=== PATIENT | male | born 1940 | race Caucasian/White ===

== ENCOUNTER 2017-09-22 20:21 | Emergency (ER) | payer OTHER, MEDICARE ==
[~2017-09-22] VITALS: Ht 180.3 cm; Wt 102.5 kg
[~2017-09-22 20:21] MED LIST: ALBU90OI INH; ASCO500 PO; ASPI325 PO; ASPI325EC PO; ATOR10 PO; ATOR40TA PO; BUPR150ER PO; CELE200; CELE200 PO; CHOL10002; CHOL10002 PO; CITA20 PO; CYAN500 PO; DIPASPER PO; DOXA4; ESCI20; FEXO180 PO; FISH1000 PO; FLUSAL1005 IH; FLUSAL2505 IH; GABA100 PO; GLUC500 PO; HYDACE7.5; HYDACE7.5 PO; HYDCHL25 PO; HYDCOR2.5A PR; KRILL OIL PO; LISHYD2025 PO; LOVENOX SQ; METF500 PO; MONT10T PO; MOVE FREE ULTR1 EAC1 PO; MOVE FREE ULTRA PO; MULVIT PO; MULVITMINF PO; NITR.4SL SL; Norco 7.5-3251 EACH PO; OMEGA-3 KRILL1 EACH; OMEP20ER; PSEU120ER PO; RABE20 PO; TEMA7.5 PO; TESTOSTERONE TOP; TOCO1000 PO; TRAM50 PO; VERAMYST; VITAMIN B-COMPLEX PO; Ventolin/Prove6.7 GM; WARF7.5 PO; [UNRECOGNIZED DRUG - MIXTURE]; [UNRECOGNIZED DRUG - OTHER] PO; [UNRECOGNIZED DRUG - OTHER] PO; [UNRECOGNIZED DRUG - OTHER] TOP
[2017-09-22] MEDS ORDERED: LISI5 PO (20:36)
[2017-09-22] MEDS ORDERED: CLOP75 PO (20:36)
[2017-09-22 20:58] LABS: BASOPHILS ABSOLUTE AUTO 0.02 K/mm3 (0.00-0.23); BASOPHILS PERCENT AUTO 0 % (0-2); EOSINOPHILS ABSOLUTE AUTO 0.04 K/mm3 (0.00-0.68); EOSINOPHILS PERCENT AUTO 0 % (0-6); Hematocrit 42.7 % (37.0-53.0); Hemoglobin 14.4 g/dL (13.5-17.5); IMMATURE GRAN ABSOLUTE AUTO 0.03 K/mm3 (0.00-0.10); IMMATURE GRAN PERCENT AUTO 0 % (0-1); LYMPHOCYTES ABSOLUTE AUTO 0.61 K/mm3 (0.84-5.20); LYMPHOCYTES PERCENT AUTO 5 % (21-46); MONOCYTES ABSOLUTE AUTO 0.94 K/mm3 (0.16-1.47); MONOCYTES PERCENT AUTO 8 % (4-13); Mean Corpuscular HGB 31.5 pg (26.0-34.0); Mean Corpuscular HGB Conc 33.7 g/dL (31.5-36.5); Mean Corpuscular Volume 93 fL (80-100); Mean Platelet Volume 11.1 fL (9.1-12.4); NEUTROPHILS ABSOLUTE AUTO 10.42 K/mm3 (1.96-9.15); NEUTROPHILS PERCENT AUTO 86 % (41-73); Platelet Count 180 K/mm3 (150-400); RDW Coefficient Variation 13.5 % (11.7-14.2); RDW Standard Deviation 46.1 fL (35.1-46.3); Red Blood Cell Count 4.57 M/mm3 (4.30-5.90); White Blood Cell Count 12.06 K/mm3 (4.00-11.30)
[2017-09-22 21:18] LABS: Albumin, Blood 3.4 g/dL (3.4-5.0); Albumin/Globulin Ratio 1.1 (0.8-1.8); Bilirubin, Total 0.4 mg/dL (0.1-1.0); Bun/Creatinine Ratio 16.9 (12.0-20.0); Calcium, Blood 8.6 mg/dL (8.5-10.1); Creatinine, Blood 1.24 mg/dL (0.60-1.20); Globulin, Blood 3.1 g/dL (2.2-4.0); Magnesium, Blood 2.3 mg/dL (1.6-2.4); Total Protein, Blood 6.5 g/dL (6.4-8.2)
[2017-09-22 22:14] LABS: Source, Urine Clean Catch
[2017-09-22 22:22] LABS: Bilirubin, Urine Neg (Neg); Blood, Urine 5+ (Neg); Glucose Qualitative, Urine Neg (Neg); Ketones, Urine Neg (Neg); Leukocyte Esterase, Urine Neg (Neg); Nitrite, Urine Neg (Neg); Protein, Urine Neg (Neg); Urobilinogen, Urine NORM (Normal)
[2017-09-22 22:28] LABS: Appearance, Urine Clear (Clear); Color, Urine Yellow (P-Yellow)
[2017-09-22] MEDS ORDERED: Flomax0.4 MG PO (22:31)
[2017-09-22] MEDS ORDERED: Percocet 5-3251 EACH PO (22:31)
[2017-09-22 22:33] LABS: Bacteria Rare /hpf; Squamous Epithelial Cells Rare /hpf (Few); White Blood Cells, Urine 0-2 /hpf (0-5)
== END 2017-09-22 23:04 | disposition home or self-care (01) ==
LOC: ER 20:21
PROVIDERS: Emergency Medicine
DX: N13.2 Hydronephrosis with renal and ureteral calculous obstruction (principal); J45.909 Unspecified asthma, uncomplicated; I10 Essential (primary) hypertension; Z86.711 Personal history of pulmonary embolism; Z86.718 Personal history of other venous thrombosis and embolism; Z88.2 Allergy status to sulfonamides; Z88.5 Allergy status to narcotic agent; Z88.8 Allergy status to other drugs, medicaments and biological substances; Z79.899 Other long term (current) drug therapy
CPT/HCPCS: 36415; 74176; 80053; 81000; 81001; 83605; 83690; 83735; 85025; 87040; 96374; 96376; 99284; J1170

== ENCOUNTER → 2018-04-21 | Outpatient (CLI) | payer OTHER, MEDICARE ==
[~2018-04-21] MED LIST changes: +CLOP75 PO; +Flomax0.4 MG PO; +LISI5 PO; +Percocet 5-3251 EACH PO
== END | disposition home or self-care (01) ==
LOC: LAB 14:24 → LAB SHORT 14:24
DX: D48.5 Neoplasm of uncertain behavior of skin (principal)
CPT/HCPCS: 87210

== ENCOUNTER → 2019-12-11 | Outpatient (CLI) | payer OTHER ==
[2019-12-11 18:18] LABS: Source, Urine Clean Catch
[2019-12-11 19:00] LABS: Bacteria Not Seen /hpf; Calcium Oxalate Crystals Mod /hpf; Mucus Light (0-Heavy); Red Blood Cells, Urine 0-2 /hpf (0-2); Squamous Epithelial Cells Few /hpf (Few); White Blood Cells, Urine 0-2 /hpf (0-5)
== END | disposition home or self-care (01) ==
LOC: LAB SHORT 16:45 → LAB EV 16:45
PROVIDERS: Physician Assistant
DX: R36.1 Hematospermia (principal)
CPT/HCPCS: 81015

== ENCOUNTER 2020-12-27 12:05 | Inpatient (IN) | payer OTHER ==
[~2020-12-27] VITALS: Ht 180.3 cm; Wt 98.9 kg
[~2020-12-27 12:05] MED LIST changes: +FLUTICASONE-SA1 EAC9 INH
[2020-12-27] MEDS ORDERED: LISI20 PO (12:34)
[2020-12-27] MEDS ORDERED: CLON.5 PO (12:35)
[2020-12-27] MEDS ORDERED: SUPHEDRINE PO (12:35)
[2020-12-27] MEDS ORDERED: ZOLOFT50 MG PO (12:35)
[2020-12-27] MEDS ORDERED: ATOR10 PO (12:36)
[2020-12-27] MEDS ORDERED: MOBIC15 MG PO (12:37)
[2020-12-27] MEDS ORDERED: RABEPRAZOLE SOD20 MG PO (12:38)
[2020-12-27] MEDS ORDERED: PRAZ5 PO (12:38)
[2020-12-27] MEDS ORDERED: TRAM50 PO (12:41)
[2020-12-27] MEDS ORDERED: TRAZ100 PO (12:43)
[2020-12-27] MEDS ORDERED: NUVIGIL50 MG PO (12:43)
[2020-12-27] MEDS ORDERED: SILD50TA PO (12:43)
[2020-12-27 12:57] LABS: Alanine Aminotransfer (ALT/SGP 20 U/L (12-78); Albumin, Blood 3.3 g/dL (3.4-5.0); Albumin/Globulin Ratio 1.2 (0.8-1.8); Alk Phos 69 U/L (50-136); Anion Gap 4 mmol/L (6-16); Aspartate Aminotrans (AST/SGOT 13 U/L (12-37); Bilirubin, Total 0.8 mg/dL (0.1-1.0); Blood Urea Nitrogen 18 mg/dL (8-24); Bun/Creatinine Ratio 18.9 (12.0-20.0); CO2, Blood 28 mmol/L (21-32); Calcium, Blood 8.3 mg/dL (8.5-10.1); Chloride, Blood 113 mmol/L (98-108); Creatinine, Blood 0.95 mg/dL (0.60-1.20); Globulin, Blood 2.7 g/dL (2.2-4.0); Glomerular Filtration Rate >60 (60-); Glucose, Blood 115 mg/dL (70-99); Potassium, Blood 4.4 mmol/L (3.5-5.5); Sodium, Blood 145 mmol/L (136-145)
[2020-12-27 13:20] LABS: BASOPHILS ABSOLUTE AUTO 0.04 K/mm3 (0.00-0.23); BASOPHILS PERCENT AUTO 1 % (0-2); EOSINOPHILS PERCENT AUTO 0 % (0-6); Hematocrit 40.2 % (37.0-53.0); Hemoglobin 13.6 g/dL (13.5-17.5); IMMATURE GRAN ABSOLUTE AUTO 0.03 K/mm3 (0.00-0.10); IMMATURE GRAN PERCENT AUTO 0 % (0-1); LYMPHOCYTES ABSOLUTE AUTO 0.92 K/mm3 (0.84-5.20); LYMPHOCYTES PERCENT AUTO 13 % (21-46); MONOCYTES ABSOLUTE AUTO 0.56 K/mm3 (0.16-1.47); MONOCYTES PERCENT AUTO 8 % (4-13); Mean Corpuscular HGB 31.6 pg (26.0-34.0); Mean Corpuscular HGB Conc 33.8 g/dL (31.5-36.5); Mean Corpuscular Volume 93 fL (80-100); Mean Platelet Volume 11.3 fL (9.1-12.4); NEUTROPHILS ABSOLUTE AUTO 5.63 K/mm3 (1.96-9.15); NEUTROPHILS PERCENT AUTO 78 % (41-73); Platelet Count 176 K/mm3 (150-400); RDW Coefficient Variation 13.2 % (11.7-14.2); RDW Standard Deviation 45.5 fL (35.1-46.3); Red Blood Cell Count 4.31 M/mm3 (4.30-5.90); White Blood Cell Count 7.18 K/mm3 (4.00-11.30)
[2020-12-27 15:06] LABS: Hematocrit 52.1 % (37.0-53.0); Hemoglobin 16.9 g/dL (13.5-17.5)
[2020-12-27] MEDS ORDERED: THERA-D2000 UNIT PO (17:20)
[2020-12-27] MEDS ORDERED: ALBU90OI INH (17:26)
--- NOTE | 2020-12-27 18:47 | NUR ---
SHIFT SUMMARY PT IS A/O X4 AND COPPERATIVE OF CARE. PT IS INDEPENDENT WITHIN ROOM. PT HAD TWO BM SINCE ARRIVAL TO UNIT, THE SECOND BM BEING OBSERVED TO HAVE BRIGHT RED BLOOD. VSS AND ON RA WITH O2 SAT RANGING IN THE HIGH 90S. PT IS NPO FOR PROCEDURE TOMORROW. PLAN IS FOR PT TO HAV ECOLONOSCOPY.
--- NOTE | 2020-12-27 19:15 | NUR ---
THIS RN AGREES WITH STUDENT NURSE SHIFT SUMMARY NOTE.
[2020-12-27 21:13] LABS: Hematocrit 39.7 % (37.0-53.0); Hemoglobin 13.5 g/dL (13.5-17.5)
[2020-12-28 01:11] LABS: Influenza A, PCR NEGATIVE (NEGATIVE); Influenza B, PCR NEGATIVE (NEGATIVE); Resp Syncytial Virus, PCR NEGATIVE (NEGATIVE); SARS-Cov-2 (COVID-19) PCR, MMC NEGATIVE (NEGATIVE)
[2020-12-28 03:35] LABS: BASOPHILS ABSOLUTE AUTO 0.03 K/mm3 (0.00-0.23); BASOPHILS PERCENT AUTO 1 % (0-2); EOSINOPHILS ABSOLUTE AUTO 0.01 K/mm3 (0.00-0.68); EOSINOPHILS PERCENT AUTO 0 % (0-6); Hematocrit 36.1 % (37.0-53.0); Hemoglobin 12.1 g/dL (13.5-17.5); IMMATURE GRAN ABSOLUTE AUTO 0.01 K/mm3 (0.00-0.10); IMMATURE GRAN PERCENT AUTO 0 % (0-1); LYMPHOCYTES ABSOLUTE AUTO 0.99 K/mm3 (0.84-5.20); LYMPHOCYTES PERCENT AUTO 15 % (21-46); MONOCYTES ABSOLUTE AUTO 0.63 K/mm3 (0.16-1.47); MONOCYTES PERCENT AUTO 10 % (4-13); Mean Corpuscular HGB 31.4 pg (26.0-34.0); Mean Corpuscular HGB Conc 33.5 g/dL (31.5-36.5); Mean Corpuscular Volume 94 fL (80-100); Mean Platelet Volume 11.2 fL (9.1-12.4); NEUTROPHILS ABSOLUTE AUTO 4.75 K/mm3 (1.96-9.15); NEUTROPHILS PERCENT AUTO 74 % (41-73); Platelet Count 155 K/mm3 (150-400); RDW Coefficient Variation 13.3 % (11.7-14.2); RDW Standard Deviation 45.5 fL (35.1-46.3); Red Blood Cell Count 3.85 M/mm3 (4.30-5.90); White Blood Cell Count 6.42 K/mm3 (4.00-11.30)
[2020-12-28 03:55] LABS: Alanine Aminotransfer (ALT/SGP 18 U/L (12-78); Albumin/Globulin Ratio 1.3 (0.8-1.8); Alk Phos 56 U/L (50-136); Anion Gap 2 mmol/L (6-16); Aspartate Aminotrans (AST/SGOT 9 U/L (12-37); Bilirubin, Total 0.7 mg/dL (0.1-1.0); Blood Urea Nitrogen 16 mg/dL (8-24); Bun/Creatinine Ratio 19.3 (12.0-20.0); CO2, Blood 29 mmol/L (21-32); Chloride, Blood 114 mmol/L (98-108); Creatinine, Blood 0.83 mg/dL (0.60-1.20); Globulin, Blood 2.3 g/dL (2.2-4.0); Glomerular Filtration Rate >60 (60-); Glucose, Blood 95 mg/dL (70-99); Potassium, Blood 3.8 mmol/L (3.5-5.5); Sodium, Blood 145 mmol/L (136-145); Total Protein, Blood 5.3 g/dL (6.4-8.2)
--- NOTE | 2020-12-28 06:08 | NUR ---
SHIFT SUMMARY PT A&O X 4; PLEASANT & COMPLIANT W/ CARE; DENIES CHEST PAIN; VSS; O2 SATS >93 ON RA; PETR REMAINS AT BEDSIDE PT HAS NOT BEEN ABLE TO FINISH IT COMPLETELY; AMBULATES TO BATHROOM W/ NO GAIT DISTURBANCES NOTED; BM REMAINS MAROON, LOOSE BUT W/ SLIGHT SEDIMENT; CALLS APPROPRIATELY; CALL LIGHT IN REACH; BED IN LOWEST POSITION; WILL CONTINUE TO MONITOR CLOSELY UNTIL HAND OFF TO DAY SHIFT RN.
[2020-12-28 09:05] LABS: Hematocrit 36.3 % (37.0-53.0)
--- NOTE | 2020-12-28 13:37 | NUR ---
PT TRANSFERED TO [facility] VIA [facility] FROM FLOOR. History, Chart, Medications and Allergies reviewed before start of procedure. Lungs clear T/O to Auscultation. Patient confirms NPO status and agrees with scheduled surgery. Pre-Op teaching done. Pt verbalizes understanding.
--- NOTE | 2020-12-28 14:14 | NUR ---
12/28/20 1414 CESAR ZAYAS History, Chart, Medications and Allergies reviewed before start of procedure. 3-LEAD EKG REVIEWED WITH PHYSICIAN PRIOR TO START OF PROCEDURE. MONITOR INTACT WITH CONTINUOUS PULSE OXIMETRY AND INTERMITTENT BP. O2 VIA NONREBREATHER INTACT THROUGHOUT SEDATION/PROCEDURE. PATIENT DETERMINED TO BE ASA APPROPRIATE FOR PROPOFOL SEDATION PRIOR TO START OF PROCEDURE BY DR. LISA AND DR. GARRISON, AND RN.
[2020-12-28 15:57] LABS: Hematocrit 37.1 % (37.0-53.0)
--- NOTE | 2020-12-28 19:54 | NUR ---
PT HAD COLONOSCOPY TODAY (SEE REPORT); PLAN IS TO DISCHARGE TO HOME TOMORROW. PT DENIES ADDITIONAL COMPLAINTS AT THIS TIME.
[2020-12-28 21:07] LABS: Hematocrit 34.7 % (37.0-53.0); Hemoglobin 11.7 g/dL (13.5-17.5)
--- NOTE | 2020-12-29 05:01 | NUR ---
SHIFT SUMMARY. VSS. PERIPHERAL IV S/L POST COMPLETION OF IV FLUIDS PER EMAR. NO EVENTS OCCURED DURING THE NIGHT. WILL CONTINUE TO MONITOR UNTIL HAND OFF TO DAY SHIFT.
--- NOTE | 2020-12-29 11:05 | NUR ---
ADMIT: 12/27/20 DISCHARGE: DX: gi bleed CC:cpeabody TRAVIS CALL: RESIDENCE: home with CAREGIVER: AUDREY NDIAYE (SPOUSE) DX:asthma, carcinoma of prostate, cva, chronci pain, htn, rem sleep behavior DME: nebulizer CCM: no record HOME HEALTH: no record SUMMARY: Admit 12/27/20 12/28/20 DR Toney, consult, lower endo today. PLAN: 1. Admit to the progressive care unit. 2. IV hydration. 3. Gastroenterology consultation with Dr. Toney has been obtained through the emergency department.
--- NOTE | 2020-12-29 15:40 | NUR ---
PIV'S D/C'ED AT 1530, DISCHARGE PACKET REVIEWED AT THE BEDSIDE WITH PT, PT EDUCATED ON HOME RX LIST, PT EDUCATED ABOUT CRITICAL SYMPTOMS OF WHEN TO ESCALATE CARE, PT REPORTS NO ADDITIONAL QUESTIONS AT THIS TIME, PT DISCHARGED TO HOME VIA WHEELCHAIR AT 1535 , TO BE DRIVEN HOME BY HIS PARTNER, ON ROOM AIR WITH NO MONITORING. PT TO FOLLOW UP WITH PCP IN 1 WEEK
--- NOTE | 2020-12-29 18:07 | NUR ---
12/29/20 Discharge home, here for transportation, Aníbal feels good and ready to go. Discussed gretta appointment in 1 week at [place]. Expect follow up call Saturday or Saturday. Reviewed discharge checklist, did not identify any additional care needs.
== END 2020-12-29 15:36 | disposition home or self-care (01) | DRG 379 ==
LOC: ER 12:05 → PCU 14:45
PROVIDERS: Emergency Medicine; Internal Medicine Gastroenterology; ADMIT Family Medicine
PROC: 0DC Gastrointestinal System, Extirpation (ICD-10-PCS; 2020-12-28)
PROC: 0DBK8ZZ Excision of Ascending Colon, Via Natural or Artificial Opening Endoscopic (ICD-10-PCS; principal; 2020-12-28 17:00)
DX: K57.31 Diverticulosis of large intestine without perforation or abscess with bleeding (principal); E86.0 Dehydration; I10 Essential (primary) hypertension; K63.5 Polyp of colon; J44.9 Chronic obstructive pulmonary disease, unspecified; M19.90 Unspecified osteoarthritis, unspecified site; Z86.73 Personal history of transient ischemic attack (TIA), and cerebral infarction without residual deficits; N40.0 Benign prostatic hyperplasia without lower urinary tract symptoms; Z20.822 Contact with and (suspected) exposure to COVID-19; Z96.653 Presence of artificial knee joint, bilateral; Z90.49 Acquired absence of other specified parts of digestive tract; Z96.619 Presence of unspecified artificial shoulder joint; Z98.890 Other specified postprocedural states; Z88.5 Allergy status to narcotic agent; Z88.8 Allergy status to other drugs, medicaments and biological substances; Z88.1 Allergy status to other antibiotic agents; Z88.2 Allergy status to sulfonamides; Z79.899 Other long term (current) drug therapy; Z85.46 Personal history of malignant neoplasm of prostate; F32.9 Major depressive disorder, single episode, unspecified; E11.9 Type 2 diabetes mellitus without complications; G43.909 Migraine, unspecified, not intractable, without status migrainosus; E78.5 Hyperlipidemia, unspecified; Z96.641 Presence of right artificial hip joint; G89.29 Other chronic pain; K64.8 Other hemorrhoids
CPT/HCPCS: 0241U; 36415; 74177; 80053; 85014; 85018; 85025; 86850; 86900; 86901; 88305; 94640; 94660; 94762; 96374; 99285-25; A9270; C9113; J1170; J2250; J2704; J7030; J7120; Q9967

== ENCOUNTER → 2021-02-07 | Outpatient (CLI) | payer OTHER ==
[~2021-02-07] MED LIST changes: +CLON.5 PO; +HYDR1TAB94 PO; +LISI20 PO; +MOBIC15 MG PO; +NUVIGIL50 MG PO; +PRAZ5 PO; +RABEPRAZOLE SOD20 MG PO; +SILD50TA PO; +SUPHEDRINE PO; +THERA-D2000 UNIT PO; +TRAZ100 PO; +ZOLOFT50 MG PO
== END | disposition home or self-care (01) ==
LOC: LAB 11:32 → LAB SHORT 11:32
DX: L57.8 Other skin changes due to chronic exposure to nonionizing radiation (principal)
CPT/HCPCS: 88305; 88342

== ENCOUNTER 2021-03-20 14:15 | Emergency (ER) | payer OTHER ==
[~2021-03-20] VITALS: Ht 180.3 cm; Wt 100.7 kg
[~2021-03-20 14:15] MED LIST changes: -HYDR1TAB94 PO
[2021-03-20] MEDS ORDERED: HYDR1TAB94 PO (15:57)
== END 2021-03-20 17:05 | disposition home or self-care (01) ==
LOC: ER 14:15
DX: S06.9X9A Unspecified intracranial injury with loss of consciousness of unspecified duration, initial encounter (principal); S00.11XA Contusion of right eyelid and periocular area, initial encounter; S80.02XA Contusion of left knee, initial encounter; S80.01XA Contusion of right knee, initial encounter; I10 Essential (primary) hypertension; K21.9 Gastro-esophageal reflux disease without esophagitis; J44.9 Chronic obstructive pulmonary disease, unspecified; Z88.2 Allergy status to sulfonamides; Z88.5 Allergy status to narcotic agent; Z88.8 Allergy status to other drugs, medicaments and biological substances; Z79.899 Other long term (current) drug therapy; W01.10XA Fall on same level from slipping, tripping and stumbling with subsequent striking against unspecified object, initial encounter
CPT/HCPCS: 70450; 70486; 72125; 73562-LT; 73562-RT; 99284-25; A9270

== ENCOUNTER 2024-03-10 08:05 | Emergency (ER) | payer OTHER ==
[~2024-03-10] VITALS: Ht 180.3 cm; Wt 89.8 kg
[~2024-03-10 08:05] MED LIST changes: +ALFUZOSIN HCL10 MG PO; +AMOX-CLAV 875-1 EAC5 PO; +ARMODAFINIL150 MG PO; +ASPI81CH PO; +FURO20 PO; +HYDR1TAB94 PO; +KLONOPIN0.5 M9 PO; +LOSA50 PO; +METO50ER PO; +POTA10T PO
[2024-03-10 08:27] LABS: BASOPHILS ABSOLUTE AUTO 0.02 K/mm3 (0.00-0.23); BASOPHILS PERCENT AUTO 1 % (0-2); EOSINOPHILS PERCENT AUTO 0 % (0-6); Hemoglobin 12.1 g/dL (13.5-17.5); IMMATURE GRAN ABSOLUTE AUTO 0.01 K/mm3 (0.00-0.10); IMMATURE GRAN PERCENT AUTO 0 % (0-1); LYMPHOCYTES ABSOLUTE AUTO 0.65 K/mm3 (0.84-5.20); LYMPHOCYTES PERCENT AUTO 16 % (21-46); MONOCYTES ABSOLUTE AUTO 0.38 K/mm3 (0.16-1.47); MONOCYTES PERCENT AUTO 9 % (4-13); Mean Corpuscular HGB 31.6 pg (26.0-34.0); Mean Corpuscular HGB Conc 33.6 g/dL (31.5-36.5); Mean Corpuscular Volume 94 fL (80-100); Mean Platelet Volume 11.1 fL (9.1-12.4); NEUTROPHILS ABSOLUTE AUTO 3.01 K/mm3 (1.96-9.15); NEUTROPHILS PERCENT AUTO 74 % (41-73); Platelet Count 139 K/mm3 (150-400); RDW Coefficient Variation 12.9 % (11.7-14.2); RDW Standard Deviation 44.4 fL (35.1-46.3); Red Blood Cell Count 3.83 M/mm3 (4.30-5.90); White Blood Cell Count 4.07 K/mm3 (4.00-11.30)
[2024-03-10] MEDS ORDERED: TOLT2 PO (08:39)
[2024-03-10 08:57] LABS: Potassium, Blood 3.1 mmol/L (3.5-5.5)
[2024-03-10 09:21] LABS: Albumin, Blood 2.7 g/dL (3.4-5.0); Albumin/Globulin Ratio 1.1 (0.8-1.8); Bilirubin, Total 0.2 mg/dL (0.1-1.0); Bun/Creatinine Ratio 26.5 (12.0-20.0); Calcium, Blood 7.8 mg/dL (8.5-10.1); Creatinine, Blood 0.68 mg/dL (0.60-1.20); Globulin, Blood 2.4 g/dL (2.2-4.0); Total Protein, Blood 5.1 g/dL (6.4-8.2)
[2024-03-10] MEDS ORDERED: Potassium Chloride 20 MEQ TabCR PO ONE (09:45)
[2024-03-10 11:31] VITALS: BP 145/62
== END 2024-03-10 12:36 | disposition home or self-care (01) ==
LOC: ER 08:05
PROVIDERS: Emergency Medicine
DX: E11.649 Type 2 diabetes mellitus with hypoglycemia without coma (principal); I11.0 Hypertensive heart disease with heart failure; I50.9 Heart failure, unspecified; R07.9 Chest pain, unspecified; R00.1 Bradycardia, unspecified; J44.9 Chronic obstructive pulmonary disease, unspecified; K21.9 Gastro-esophageal reflux disease without esophagitis; F32.A Depression, unspecified; E78.5 Hyperlipidemia, unspecified; G47.33 Obstructive sleep apnea (adult) (pediatric); Z88.2 Allergy status to sulfonamides; Z79.899 Other long term (current) drug therapy; Z79.82 Long term (current) use of aspirin
CPT/HCPCS: 71045; 80053; 82947; 83735; 84484; 85025; 93005; 93010; 99285-25; A9270

== ENCOUNTER 2025-05-15 23:31 | Emergency (ER) | payer OTHER ==
[~2025-05-15] VITALS: Ht 180.3 cm; Wt 81.7 kg
[~2025-05-15 23:31] MED LIST changes: +TOLT2 PO
[2025-05-15 23:33] VITALS: BP 125/66
[2025-05-15 23:54] LABS: BASOPHILS ABSOLUTE AUTO 0.04 K/mm3 (0.00-0.23); BASOPHILS PERCENT AUTO 1 % (0-2); EOSINOPHILS ABSOLUTE AUTO 0.01 K/mm3 (0.00-0.68); EOSINOPHILS PERCENT AUTO 0 % (0-6); Hematocrit 41.5 % (37.0-53.0); Hemoglobin 13.8 g/dL (13.5-17.5); IMMATURE GRAN ABSOLUTE AUTO 0.01 K/mm3 (0.00-0.10); IMMATURE GRAN PERCENT AUTO 0 % (0-1); LYMPHOCYTES ABSOLUTE AUTO 1.26 K/mm3 (0.84-5.20); LYMPHOCYTES PERCENT AUTO 20 % (21-46); MONOCYTES ABSOLUTE AUTO 0.59 K/mm3 (0.16-1.47); MONOCYTES PERCENT AUTO 9 % (4-13); Mean Corpuscular HGB Conc 33.3 g/dL (31.5-36.5); Mean Corpuscular Volume 98 fL (80-100); NEUTROPHILS ABSOLUTE AUTO 4.56 K/mm3 (1.96-9.15); NEUTROPHILS PERCENT AUTO 70 % (41-73); NRBC ABSOLUTE 0.00 K/mm3 (0.00-0.02); NRBC Auto 0.0 /100 WBC (0.0-0.2); Platelet Count 176 K/mm3 (150-400); RDW Coefficient Variation 12.8 % (11.7-14.2); RDW Standard Deviation 45.7 fL (35.1-46.3)
[2025-05-16 00:12] LABS: Alanine Aminotransfer (ALT/SGP 15.0 U/L (12-78); Albumin, Blood 3.5 g/dL (3.4-5.0); Albumin/Globulin Ratio 1.3 (0.8-1.8); Anion Gap 9.0 mmol/L (3-11); Aspartate Aminotrans (AST/SGOT 16.0 U/L (12-37); Bilirubin, Total 0.5 mg/dL (0.1-1.0); Blood Urea Nitrogen 22.0 mg/dL (8-24); CO2, Blood 25.0 mmol/L (21-32); Calcium, Blood 8.7 mg/dL (8.5-10.1); Chloride, Blood 113.0 mmol/L (98-108); Creatinine, Blood 1.17 mg/dL (0.60-1.20); Globulin, Blood 2.7 g/dL (2.2-4.0); Glucose, Blood 106.0 mg/dL (70-99); Potassium, Blood 3.9 mmol/L (3.5-5.5); Sodium, Blood 143.0 mmol/L (136-145); Total Protein, Blood 6.2 g/dL (6.4-8.2)
== END 2025-05-16 03:08 | disposition left against medical advice (07) ==
LOC: ER 23:31
PROVIDERS: Emergency Medicine
DX: R07.89 Other chest pain (principal); Z53.29 Procedure and treatment not carried out because of patient's decision for other reasons; I25.10 Atherosclerotic heart disease of native coronary artery without angina pectoris; Z95.5 Presence of coronary angioplasty implant and graft; Z79.02 Long term (current) use of antithrombotics/antiplatelets; Z79.899 Other long term (current) drug therapy
CPT/HCPCS: 71045; 80053; 84484; 85025; 93005; 93010; 99283-25